=== PATIENT | female | born 1945 | race Caucasian/White ===

== ENCOUNTER 2018-09-28 10:38 | Observation (INO) | payer MEDICAID, MEDICARE ==
[2018-09-28] MEDS ORDERED: PANTOPRAZOLE SODIUM 40 MG in NORMAL SALINE 100 ML IV ONE (10:46)
[2018-09-28] MEDS ORDERED: NORMAL SALINE 1,000 ML IV ONE (10:46)
[2018-09-28 11:18] LABS: Hematocrit 35.8 % (37.0-47.0); Hemoglobin 11.4 gm/dL (12.5-16.0); Mean Cell Volume 80.3 fl (78-100); Mean Corpuscular Hemoglobin 25.6 pg (27-31); Mean Corpuscular Hgb Conc 31.8 g/dl (32-36); Mean Platelet Volume 10.6 fl (8-12.5); Neutrophil # 16.7 K/mm3 (1.3-6.0); Neutrophil % 83.5 % (42-75.0); Platelet Count 539 K/mm3 (150-450); Red Blood Count 4.46 M/mm3 (4.2-5.4); Red Cell Distribution Width 14.8 % (11.5-14.0)
[2018-09-28 11:25] LABS: Prothrombin Time (Patient) 11.1 Seconds (9.0-11.0)
[2018-09-28] MEDS ORDERED: PANTOPRAZOLE SODIUM 40 MG/100 ML PIGGYBACK IV ONE (11:30)
[2018-09-28 11:31] LABS: ALT 17 U/L (19-67); AST 21 U/L (0-48); Albumin * 3.3 gm/dl (3.4-5.0); Alkaline Phosphatase * 107 U/L (50-170); Anion Gap 10.3 mmol/L (6.8-13.8); Bilirubin, Total 0.4 mg/dL (0.0-1.1); Blood Urea Nitrogen 29 mg/dL (3-23); Ca. Corrected For Albumin 9.4 mg/dL (8.4-10.2); Calcium * 9.2 mg/dL (7.9-10.9); Carbon Dioxide 30.4 mmol/L (24-32.6); Chloride 100 mmol/L (97-106); Glucose * 134 mg/dL (70-110); Potassium 3.7 mmol/L (3.4-4.6); Sodium 137 mmol/L (132-142); Total Protein 8.5 gm/dL (6.2-8.2); Troponin I Less than 0.017 ng/mL (0.00-0.10)
[2018-09-28 11:32] LABS: INR 1.11 INR (0.90-1.10); Partial Thrombolplastin Time 29.4 Seconds (24-32)
--- NOTE | 2018-09-28 11:50 | ERNOTE ---
GI Bleeding/Rectal Pain ER Date of Service: 09/28/18 Presenting Symptoms: vomiting blood Time Seen by Provider: 09/28/18 10:39 Source: patient Exam Limitations: no limitations Immunizations: IMMUNIZATION HX Immunizations Up to Date Yes History of Influenza Vaccine Yes Hx Pneumococcal Vaccination Yes Allergies/Adverse Reactions: Allergies tramadol Allergy (Intermediate, Verified 09/28/18 10:43) Home Medications: HOME MEDICATIONS Albuterol Sulfate [Albuterol Sulfate 2.5 MG/0.5ML] 1 vial IH Q4H PRN 09/28/18 [Last Taken Unknown] Amlodipine Besylate 10 mg PO DAILY 09/28/18 [Last Taken Unknown] Anagrelide HCl 0.5 mg PO DAILY 09/28/18 [Last Taken Unknown] Aspirin 81 mg PO DAILY 09/28/18 [Last Taken Unknown] Benzonatate 100 mg PO TID PRN 09/28/18 [Last Taken Unknown] Enalapril Maleate [Vasotec] 20 mg PO DAILY 09/28/18 [Last Taken Unknown] Fluticasone Propionate [Flovent Hfa] 1 puff IH 09/28/18 [Last Taken Unknown] Furosemide [Lasix] 20 mg PO DAILY 09/28/18 [Last Taken Unknown] Metoclopramide HCl [Reglan] 5 mg PO QID 09/28/18 [Last Taken Unknown] Metoprolol Succinate [Toprol Xl] 50 mg PO DAILY 09/28/18 [Last Taken Unknown] Morphine Sulfate [Ms Contin] 30 mg PO BID 09/28/18 [Last Taken Unknown] Nicotine [Nicoderm] 14 mg TD DAILY 09/28/18 [Last Taken Unknown] Saccharomyces Boulardii [Probiotic] 250 mg PO BID 09/28/18 [Last Taken Unknown] Sennosides [Senna Laxative] 8.6 mg PO DAILY 09/28/18 [Last Taken Unknown] Simvastatin [Zocor] 10 mg PO HS 09/28/18 [Last Taken Unknown] Ticagrelor [Brilinta] 90 mg PO BID 09/28/18 [Last Taken Unknown] predniSONE [Prednisone] 1 tab PO TID 09/28/18 [Last Taken Unknown] Narrative: Patient presents to the ED via EMS for vomiting blood. She seems to be a poor historian. SHe is not sure what medications she takes. She was sent in from the clinic after vomiting blood twice. She was feeling fine yesterday. She had some bleeding from her mouth this morning. She also had a dark bowel movement by EMS report. She denies acute CP or SOB. Is home O2 dependent and thinks she has been having some nose bleeds. Apparently is on Brilinta. No coumadin or other blood thinners. She initially was not sure if her mouth was bleeding before she vomited blood. No syncope. Timing: constant Quality/Severity: Present: moderate Nausea/Vomiting: Present: blood Abdominal Pain: Present: none Rectal Bleeding: Absent: blood mixed with stool Associated Symptoms: Denies: light headedness Prior Treament: Denies: recently hospitalized Review of Systems - Review of Systems Constitutional: Absent: fever ENT: Present: See HPI Respiratory: Absent: cough Cardiology: Absent: chest pain Gastrointestinal/Abdominal: Absent: abdominal pain Genitourinary: Absent: dysuria Musculoskeletal: Present: no symptoms reported All Other Systems: All systems neg except as marked Medical History (Last Reviewed 09/28/18 @ 12:59 by Rogerio Ash MD) History of COPD History of home oxygen therapy Hx of carotid artery stenosis Hx of chronic heart failure Hx of hyperlipidemia Hx of primary hypertension Surgical History: Surgical History (Last Reviewed 09/28/18 @ 12:59 by Rogerio Ash MD) History of common carotid artery stent placement Hx of heart artery stent Hx of hysterectomy Family History: Family History (Last Reviewed 09/28/18 @ 12:59 by Rogerio Ash MD) Other No pertinent family history Social History: Preferred Language Haitian Do you have any confucianist or No cultural preference? Smoking Status Former smoker Alcohol Use none Drug Use none No Social History Section defined Physical Exam - Physical Exam General Appearance: Present: alert Head Exam: Present: normal inspection Eye Exam: Normal inspection: bilateral Ears, Nose, Throat: Present: other - bleeding from just behind upper fron teeth. Nothing that I can see as bleeding specifically. No active nose bleed noted. Neck: Present: other - trachea midline Respiratory: Present: no respiratory distress, no accessory muscle use, other - few faint wheezes Cardiovascular/Chest: Present: regular rate, rhythm Gastrointestinal/Abdominal: Present: normal bowel sounds, nontender, nondistended, soft Back Exam: Absent: CVA tenderness (R), CVA tenderness (L) Extremity Exam: Present: other - no gross deformity Neurological Exam: Present: alert, other - no acute unilateral focal motor or sensory deficits noted Skin Exam: Present: normal color, warm/dry ED Progress - Results and Orders Patient's Lab Results:: I have reviewed the patient's lab results. - Vital Signs Patient's Vital Signs:: I have reviewed the patient's vital signs. Vital Signs: Vital Signs 09/28/18 10:39 09/28/18 10:57 09/28/18 11:22 Temperature 36.3 C Pulse Rate 87 87 75 Respiratory Rate 16 19 Blood Pressure 216/106 H 200/89 H O2 Sat by Pulse Oximetry 95 98 - EKG EKG: NSR EKG read: Interp. by me EKG Comments: NSR rate 76, PVCs noted. Non-specific changes, no STEMI - X-Ray X-Ray #1 X-Ray: chest Interpretation: Interp. by me X-ray Comments: I reviewed official radiology report - Progress/Reassessment Chief Complaint: GI Bleed Progress Note-Subjective: 09/28/18 13:03 Bleeding in mouth stopped after afrin on cotton swab after failed attempts at pressure/surgicel/teabag. I am not sure if this bleeding in the mouth was caused by the vomiting or if the oral bleeding was the initiating event. Given her poor overall health and the amount of blood she needs to have her hemoglobin trended. I spoke with Dr Gonzalez who saw the patient in the ED and will admit the patient obs. Patient is agreeable. Departure Clinical Impression: Vomiting blood, Oral hemorrhage, Leukocytosis, Guaiac positive stools - Departure Disposition: Still a patient Condition: Fair
[2018-09-28] MEDS ORDERED: OXYMETAZOLINE HCL 150 SPRAY BTL ONE (12:29)
[2018-09-28] MEDS ORDERED: PHENYLEPHRINE HCL 150 SPRAY BTL NS ONE (12:31)
[2018-09-28 13:17] LABS: Urine Bilirubin Negative (NEGATIVE); Urine Blood Negative /ul (NEGATIVE); Urine Ketone Negative (NEGATIVE); Urine Protein 15 mg/dL (NEGATIVE); Urine Urobilinogen Normal (NORMAL)
[2018-09-28 13:24] LABS: Urine Appearance Slightly Cloudy (CLEAR); Urine Bacteria 2+; Urine Color Pale Yellow; Urine Nitrite Positive (NEGATIVE); Urine RBC TRACE /hpf (0-5)
[2018-09-28] MEDS ORDERED: ALBUTEROL SULFATE 2.5 MG/0.5 ML VIAL.NEB IH PRN (15:20)
[2018-09-28] MEDS ORDERED: BENZONATATE 100 MG CAPSULE PO PRN (15:20)
[2018-09-28] MEDS ORDERED: LEVOFLOXACIN IN DEXTROSE 5 % 500 MG/100 ML BAG IV SCH (15:30)
--- NOTE | 2018-09-28 16:00 | CONS ---
[facility] - General Date of Service: 09/28/18 Narrative: GI bleed Source: patient Exam Limitations: other - poor historian - History of Present Illness Initial Comments: Patient describes having dark loose stools which she attributes to taking a stool softener and her blood thinner. Also has a cut in her mouth, and believes that is why she was spitting up blood. Denies any nausea or vomiting. She denies any abdominal pain. Denies a history of peptic ulcer disease. She denies having an EGD in the past. She believes that she has had a colonoscopy in the past, and believes that was in the last few years. She currently denies any pain. Denies any nausea or vomiting currently. Timing/Duration: 24 hours Severity: mild Associated Symptoms: denies symptoms, weakness Allergies/Adverse Reactions: Allergies tramadol Allergy (Intermediate, Verified 09/28/18 10:43) Home Medications: Home Medications Medication Instructions Recorded Last Taken Albuterol Sulfate [Albuterol 1 vial IH Q4H PRN 09/28/18 Unknown Sulfate 2.5 MG/0.5ML] Amlodipine Besylate 10 mg PO DAILY 09/28/18 Unknown Anagrelide HCl 0.5 mg PO DAILY 09/28/18 Unknown Aspirin 81 mg PO DAILY 09/28/18 Unknown Benzonatate 100 mg PO TID PRN 09/28/18 Unknown Enalapril Maleate [Vasotec] 20 mg PO DAILY 09/28/18 Unknown Fluticasone Propionate [Flovent 1 puff IH DAILY 09/28/18 Unknown Hfa] Furosemide [Lasix] 20 mg PO DAILY 09/28/18 Unknown Metoclopramide HCl [Reglan] 5 mg PO QID 09/28/18 Unknown Metoprolol Succinate [Toprol Xl] 50 mg PO DAILY 09/28/18 Unknown Morphine Sulfate [Ms Contin] 30 mg PO BID 09/28/18 Unknown Nicotine [Nicoderm] 14 mg TD DAILY 09/28/18 Unknown Saccharomyces Boulardii [Probiotic] 250 mg PO BID 09/28/18 Unknown Sennosides [Senna Laxative] 8.6 mg PO DAILY 09/28/18 Unknown Simvastatin [Zocor] 10 mg PO HS 09/28/18 Unknown Ticagrelor [Brilinta] 90 mg PO BID 09/28/18 Unknown predniSONE [Prednisone] 1 tab PO TID 09/28/18 Unknown History of carotid artery stent placement History of hysterectomy Describes an aortobifemoral repair Multiple large abdominal incisions Medications - Medications Current Medications: Please see list, includes Brilinta and aspirin Review of Systems - Review of Systems Narrative: Unable to obtain an accurate review of systems due to poor historian Physical Examination - Exam Narrative: No acute distress Vital Signs: Vital Signs - Last Taken Temp 36.9 C 09/28/18 14:15 Pulse 70 09/28/18 14:42 Resp 12 09/28/18 14:15 BP 174/74 H 09/28/18 14:15 Pulse Ox 99 09/28/18 14:15 O2 Oxygen Delivery Method Nasal Cannula Constitutional: Present: Alert, Oriented x3, Cooperative, Well developed, No distress ENT Exam: Present: hearing grossly normal Neck: Present: supple Breasts: Present: Exam deferred Respiratory: Present: lungs clear, normal breath sounds Cardiovascular/Chest: Present: normal peripheral pulses, regular rate, rhythm, no JVD Abdomen: Present: Normal bowel sounds, soft, nontender /Rectal: Present: Exam deferred Extremity: Present: normal range of motion Skin Exam: Present: normal color 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 tested Appearance: Present: appropriate appearance Eye contact: Present: cooperative Thoughts: Present: other - Poor historian - Results and Findings: Lab/Microbiology results last 24 hrs: Abnormal/Pending Laboratory Last 24 HRS 09/28/18 09/28/18 09/28/18 13:02 11:21 11:00 WBC Hgb Hct MCH MCHC RDW Plt Count Immature Gran % (Auto) Immature Gran # (Auto) Neutrophils % Lymphocytes % Neutrophils # Lymphocytes # Monocytes # PT INR (Anticoag Therapy) BUN Est GFR (Non-Af Amer) BUN/Creatinine Ratio Random Glucose ALT B-Natriuretic Peptide 1152 H Total Protein Albumin Urine Protein 15 H Urine Nitrate Positive H Ur Leukocyte Esterase 75 H Urine WBC 5-10 H Urine Bacteria 2+ H Stool Occult Blood Positive H 09/28/18 09/28/18 09/28/18 11:00 11:00 11:00 WBC 20.0 H Hgb 11.4 L Hct 35.8 L MCH 25.6 L MCHC 31.8 L RDW 14.8 H Plt Count 539 H Immature Gran % (Auto) 0.60 H Immature Gran # (Auto) 0.11 H Neutrophils % 83.5 H Lymphocytes % 6.8 L Neutrophils # 16.7 H Lymphocytes # 1.35 L Monocytes # 1.2 H PT 11.1 H INR (Anticoag Therapy) 1.11 H BUN 29 H Est GFR (Non-Af Amer) 42 L BUN/Creatinine Ratio 22.0 H Random Glucose 134 H ALT 17 L B-Natriuretic Peptide Total Protein 8.5 H Albumin 3.3 L Urine Protein Urine Nitrate Ur Leukocyte Esterase Urine WBC Urine Bacteria Stool Occult Blood - Assessments/Findings (1) Guaiac positive stools Problem: Acute (2) Leukocytosis Problem: Acute (3) Oral hemorrhage Problem: Acute (4) Vomiting blood Problem: Acute Plan - Plan Plan: EGD planned for tomorrow. Risks and benefits of the procedure were discussed with the patient and she'll like to proceed. I also discussed the patient with Dr. Gonzalez. She can have clears tonight, nothing by mouth after midnight for the procedure. Continue to do serial hemoglobins.
[2018-09-28] MEDS: predniSONE 20 MG TABLET PO SCH (16:03)
[2018-09-28] MEDS: amLODIPine BESYLATE 10 MG TABLET PO SCH (16:03)
[2018-09-28] MEDS: SUCRALFATE 1 G TABLET PO SCH ×2 (16:03→20:30)
[2018-09-28] MEDS: ENALAPRIL MALEATE 20 MG TABLET PO SCH (16:03)
--- NOTE | 2018-09-28 16:15 | HP ---
Chief Complaint - Chief Complaint Date of Service: 09/28/18 Time of Service: 12:50 Chief Complaint: Upper GI bleed History of Present Illness: Gaviota Altman is a 72 yo. wh. fe. who presented to ER after vomiting an ~800cc of blood. She also had some black tarry stools. She also had some bleeding from the hard palate just behind the upper front teeth. That was successfully stopped by Dr. Alvarez. She has not had any more hematemesis since admission. Her BP was elevated in the ER and she had not taKEN HER MORNING MEDS which are mostly BP meds. She takes Brilinta daily and also takes an antiplatelet med and aspirin. She has a elevated WBC of 20K and maybe because she is on prednisone 60mg daily. She also has a UTI per UA. No c/o dysuria, frequency, urgency or gu bleeding. She will be observed and monitored through the night. She will have serial H&Hs q 6 hrs Xs 4. I will start her on sucralfate and pantoprazole. I have asked Dr. Masters to consult. I have started levaquin at 500mg /day due to renal insuficiency. She received one dose of Rocephin in the ER. I will hold all of her anticoagulants.Allow clear liquids. Medical History (Last Reviewed 09/28/18 @ 14:19 by Tonia Wilkins RN) History of COPD History of home oxygen therapy Hx of carotid artery stenosis Hx of chronic heart failure Hx of hyperlipidemia Hx of primary hypertension Surgical History: Surgical History (Last Updated 09/28/18 @ 14:17 by Tonia Wilkins RN) History of [id number] bypass History of common carotid artery stent placement Hx of heart artery stent Hx of hysterectomy Family History: Family History (Last Updated 09/28/18 @ 14:19 by Tonia Wilkins RN) Father Colon cancer Mother Myocardial infarction Other Parents Social History: Patient Lives/Resources Home Utilized Occupation retired/disability Preferred Language Sudanese Do you have any druze or No cultural preference? Smoking Status Former smoker Have you smoked in the past 12 No months Do you dip or chew tobacco No Alcohol Use none Drug Use none No Social History Section defined Review Of Systems (GEN) - Review of Systems Generalized/Overall Review: Present: Weakness, Fatigue EENTM: Present: No Symptoms Reported Respiratory: Present: Cough, Shortness of Breath, Wheezing. Absent: Stridor Cardiac: Present: No Symptoms Reported, Other - Hx. of CAD and stenting Abdominal: Present: Nausea, Vomiting, Hematemesis, Melena. Absent: Bright blood from rectum Genitourinary: Present: No Symptoms Reported Musculoskeletal: Present: No Symptoms Reported Neurological: Present: Tremors, Weakness Skin: Present: No Symptoms Reported Endocrine: Present: No Symptoms Reported Immunizations: IMMUNIZATION HX Immunizations Up to Date Yes History of Influenza Vaccine Yes Hx Pneumococcal Vaccination Yes Allergies/Adverse Reactions: Allergies Allergy/AdvReac Type Severity Reaction Status Date / Time tramadol Allergy Intermediate Verified 09/28/18 10:43 Home Medications: HOME MEDICATIONS Albuterol Sulfate [Albuterol Sulfate 2.5 MG/0.5ML] 1 vial IH Q4H PRN 09/28/18 [Last Taken Unknown] Amlodipine Besylate 10 mg PO DAILY 09/28/18 [Last Taken Unknown] Anagrelide HCl 0.5 mg PO DAILY 09/28/18 [Last Taken Unknown] Aspirin 81 mg PO DAILY 09/28/18 [Last Taken Unknown] Benzonatate 100 mg PO TID PRN 09/28/18 [Last Taken Unknown] Enalapril Maleate [Vasotec] 20 mg PO DAILY 09/28/18 [Last Taken Unknown] Fluticasone Propionate [Flovent Hfa] 1 puff IH DAILY 09/28/18 [Last Taken Unknown] Furosemide [Lasix] 20 mg PO DAILY 09/28/18 [Last Taken Unknown] Metoclopramide HCl [Reglan] 5 mg PO QID 09/28/18 [Last Taken Unknown] Metoprolol Succinate [Toprol Xl] 50 mg PO DAILY 09/28/18 [Last Taken Unknown] Morphine Sulfate [Ms Contin] 30 mg PO BID 09/28/18 [Last Taken Unknown] Nicotine [Nicoderm] 14 mg TD DAILY 09/28/18 [Last Taken Unknown] Saccharomyces Boulardii [Probiotic] 250 mg PO BID 09/28/18 [Last Taken Unknown] Sennosides [Senna Laxative] 8.6 mg PO DAILY 09/28/18 [Last Taken Unknown] Simvastatin [Zocor] 10 mg PO HS 09/28/18 [Last Taken Unknown] Ticagrelor [Brilinta] 90 mg PO BID 09/28/18 [Last Taken Unknown] predniSONE [Prednisone] 1 tab PO TID 09/28/18 [Last Taken Unknown] Exam - Exam Vital Signs: Vital Signs - Last Taken Temp 36.9 C 09/28/18 14:15 Pulse 70 09/28/18 14:42 Resp 12 09/28/18 14:15 BP 174/74 H 09/28/18 14:15 Pulse Ox 99 09/28/18 14:15 Constitutional: Present: Alert, Oriented x3, Cooperative, Well developed, Well nourished, Moderate distress, Elderly, Looks Older than stated age ENT Exam: Present: hearing grossly normal, other - dark blood in her mouth Eye Exam: bilateral eye: normal inspection, PERRL, EOMI Neck: Present: non-tender, full range of motion, supple, normal inspection, trachea midline Back Exam: Present: normal inspection, no CVA tenderness, no vertebral tenderness Breasts: Present: Exam deferred Respiratory: Present: chest non-tender, decreased breath sounds, rhonchi, wheezing Cardiovascular/Chest: Present: normal peripheral pulses, regular rate, rhythm, no chest tenderness, no edema, no gallop, no JVD, no murmur, no rub Peripheral Pulses: carotid (R): 2+, carotid (L): 2+ Abdomen: Present: Normal bowel sounds, soft, tender, guarding - in the midepigastrium /Rectal: Present: Exam deferred Extremity: Present: normal range of motion, non-tender, normal inspection, no pedal edema, no calf tenderness, normal capillary refill Skin Exam: Present: normal color, warm/dry, no cyanosis Lymphatic: Present: no adenopathy 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 Absent: no apparent hallucination, auditory hallucinations, delusions Diagnostic Studies: Abnormal Lab Results 09/28/18 09/28/18 09/28/18 Range/Units 11:00 11:00 11:00 WBC 20.0 H (4.0-10.5) K/mm3 Hgb 11.4 L (12.5-16.0) gm/dL Hct 35.8 L (37.0-47.0) % MCH 25.6 L (27-31) pg MCHC 31.8 L (32-36) g/dl RDW 14.8 H (11.5-14.0) % Plt Count 539 H (150-450) K/mm3 Immature Gran % (Auto) 0.60 H (0.001-0.429) % Immature Gran # (Auto) 0.11 H (0.000-0.0310) K/mm3 Neutrophils % 83.5 H (42-75.0) % Lymphocytes % 6.8 L (20-51) % Neutrophils # 16.7 H (1.3-6.0) K/mm3 Lymphocytes # 1.35 L (1.5-3.5) k/mm3 Monocytes # 1.2 H (0.0-1.0) k/mm3 PT 11.1 H (9.0-11.0) Seconds INR (Anticoag Therapy) 1.11 H (0.90-1.10) INR BUN 29 H (3-23) mg/dL Est GFR (Non-Af Amer) 42 L (60-130) mL/min BUN/Creatinine Ratio 22.0 H (9.0-21.6) Random Glucose 134 H (70-110) mg/dL ALT 17 L (19-67) U/L B-Natriuretic Peptide (5-325) pg/mL Total Protein 8.5 H (6.2-8.2) gm/dL Albumin 3.3 L (3.4-5.0) gm/dl Urine Protein (NEGATIVE) mg/dL Urine Nitrate (NEGATIVE) Ur Leukocyte Esterase (NEGATIVE) /ul Urine WBC (0-5) /hpf Urine Bacteria (NONE) Stool Occult Blood 09/28/18 09/28/18 09/28/18 Range/Units 11:00 11:21 13:02 WBC (4.0-10.5) K/mm3 Hgb (12.5-16.0) gm/dL Hct (37.0-47.0) % MCH (27-31) pg MCHC (32-36) g/dl RDW (11.5-14.0) % Plt Count (150-450) K/mm3 Immature Gran % (Auto) (0.001-0.429) % Immature Gran # (Auto) (0.000-0.0310) K/mm3 Neutrophils % (42-75.0) % Lymphocytes % (20-51) % Neutrophils # (1.3-6.0) K/mm3 Lymphocytes # (1.5-3.5) k/mm3 Monocytes # (0.0-1.0) k/mm3 PT (9.0-11.0) Seconds INR (Anticoag Therapy) (0.90-1.10) INR BUN (3-23) mg/dL Est GFR (Non-Af Amer) (60-130) mL/min BUN/Creatinine Ratio (9.0-21.6) Random Glucose (70-110) mg/dL ALT (19-67) U/L B-Natriuretic Peptide 1152 H (5-325) pg/mL Total Protein (6.2-8.2) gm/dL Albumin (3.4-5.0) gm/dl Urine Protein 15 H (NEGATIVE) mg/dL Urine Nitrate Positive H (NEGATIVE) Ur Leukocyte Esterase 75 H (NEGATIVE) /ul Urine WBC 5-10 H (0-5) /hpf Urine Bacteria 2+ H (NONE) Stool Occult Blood Positive H Laboratory Results WBC 20.0 K/mm3 (4.0-10.5) H 09/28/18 11:00 RBC 4.46 M/mm3 (4.2-5.4) 09/28/18 11:00 Hgb 11.4 gm/dL (12.5-16.0) L 09/28/18 11:00 Hct 35.8 % (37.0-47.0) L 09/28/18 11:00 MCV 80.3 fl (78-100) 09/28/18 11:00 MCH 25.6 pg (27-31) L 09/28/18 11:00 MCHC 31.8 g/dl (32-36) L 09/28/18 11:00 RDW 14.8 % (11.5-14.0) H 09/28/18 11:00 Plt Count 539 K/mm3 (150-450) H 09/28/18 11:00 MPV 10.6 fl (8-12.5) 09/28/18 11:00 Immature Gran % (Auto) 0.60 % (0.001-0.429) H 09/28/18 11:00 Immature Gran # (Auto) 0.11 K/mm3 (0.000-0.0310) H 09/28/18 11:00 Neutrophils % 83.5 % (42-75.0) H 09/28/18 11:00 Lymphocytes % 6.8 % (20-51) L 09/28/18 11:00 Monocytes % 6.2 % (0.0-9) 09/28/18 11:00 Eosinophils % 2.5 % (0.0-3.0) 09/28/18 11:00 Basophils % 0.4 % (0.0-1.0) 09/28/18 11:00 Nucleated RBC % 0.0 k/mm3 (0-1) 09/28/18 11:00 Neutrophils # 16.7 K/mm3 (1.3-6.0) H 09/28/18 11:00 Lymphocytes # 1.35 k/mm3 (1.5-3.5) L 09/28/18 11:00 Monocytes # 1.2 k/mm3 (0.0-1.0) H 09/28/18 11:00 Eosinophils # 0.5 k/mm3 (0.0-0.7) 09/28/18 11:00 Absolute Basophils 0.1 k/mm3 (0.0-0.1) 09/28/18 11:00 PT 11.1 Seconds (9.0-11.0) H 09/28/18 11:00 INR (Anticoag Therapy) 1.11 INR (0.90-1.10) H 09/28/18 11:00 PTT (Erik) 29.4 Seconds (24-32) 09/28/18 11:00 Sodium 137 mmol/L (132-142) 09/28/18 11:00 Plasma Sodium 138 mmol/L (130-142) 09/28/18 11:00 Potassium 3.7 mmol/L (3.4-4.6) 09/28/18 11:00 Chloride 100 mmol/L (97-106) 09/28/18 11:00 Carbon Dioxide 30.4 mmol/L (24-32.6) 09/28/18 11:00 Anion Gap 10.3 mmol/L (6.8-13.8) 09/28/18 11:00 BUN 29 mg/dL (3-23) H 09/28/18 11:00 Creatinine 1.32 mg/dL (0.4-1.4) 09/28/18 11:00 Est GFR (Non-Af Amer) 42 mL/min (60-130) L 09/28/18 11:00 BUN/Creatinine Ratio 22.0 (9.0-21.6) H 09/28/18 11:00 Random Glucose 134 mg/dL (70-110) H 09/28/18 11:00 Lactic Acid, Venous 0.6 mmol/L (0.4-2.0) 09/28/18 12:10 Calcium 9.2 mg/dL (7.9-10.9) 09/28/18 11:00 Calcium Adj for Albumin 9.4 mg/dL (8.4-10.2) 09/28/18 11:00 Total Bilirubin 0.4 mg/dL (0.0-1.1) 09/28/18 11:00 AST 21 U/L (0-48) 09/28/18 11:00 ALT 17 U/L (19-67) L 09/28/18 11:00 Alkaline Phosphatase 107 U/L (50-170) 09/28/18 11:00 Troponin I Less than 0.017 ng/mL (0.00-0.10) 09/28/18 11:00 B-Natriuretic Peptide 1152 pg/mL (5-325) H 09/28/18 11:00 Total Protein 8.5 gm/dL (6.2-8.2) H 09/28/18 11:00 Albumin 3.3 gm/dl (3.4-5.0) L 09/28/18 11:00 Urine Color Pale yellow 09/28/18 13:02 Urine Appearance Slightly cloudy (CLEAR) 09/28/18 13:02 Urine pH 6.0 pH (5.0-7.0) 09/28/18 13:02 Ur Specific Armstrong 1.020 SP.GR. (1.005-1.010) 09/28/18 13:02 Urine Protein 15 mg/dL (NEGATIVE) H 09/28/18 13:02 Urine Glucose (UA) Negative mg/dL (NEGATIVE) 09/28/18 13:02 Urine Ketones Negative mg/dL (NEGATIVE) 09/28/18 13:02 Urine Blood Negative /ul (NEGATIVE) 09/28/18 13:02 Urine Nitrate Positive (NEGATIVE) H 09/28/18 13:02 Urine Bilirubin Negative mg/dl (NEGATIVE) 09/28/18 13:02 Prot Sulfosalicylic Acd 1+ mg/dL (0) 09/28/18 13:02 Urine Urobilinogen Normal EU/dl (NORMAL) 09/28/18 13:02 Ur Leukocyte Esterase 75 /ul (NEGATIVE) H 09/28/18 13:02 Urine RBC Trace /hpf (0-5) 09/28/18 13:02 Urine WBC 5-10 /hpf (0-5) H 09/28/18 13:02 Ur Epithelial Cells 0-5 /hpf (0-5) 09/28/18 13:02 Urine Bacteria 2+ (NONE) H 09/28/18 13:02 Urine Culture Comments Culture to follow 09/28/18 13:02 Stool Occult Blood Positive H 09/28/18 11:21 Blood Type B Positive 09/28/18 11:00 Antibody Screen Positive 09/28/18 11:00 Assessment/Plan - Narrative Narrative: 1. Serial H&Hs. 2. Treat UTI 3. Begin Pantoprazole and sulcralfate 4. Surgical consult with Dr. Masters. 5 begin clear liquids and start BP meds today.
--- NOTE | 2018-09-28 17:36 | ANES ---
Anesthesia Pre Procedure Eval Vitals/Labs: Last Vital Signs Temp 36.9 C 09/28/18 14:15 Pulse 70 09/28/18 16:03 Resp 12 09/28/18 14:15 BP 174/74 H 09/28/18 16:03 Pulse Ox 99 09/28/18 14:15 HOME MEDICATIONS Albuterol Sulfate [Albuterol Sulfate 2.5 MG/0.5ML] 1 vial IH Q4H PRN 09/28/18 [Last Taken Unknown] Amlodipine Besylate 10 mg PO DAILY 09/28/18 [Last Taken Unknown] Anagrelide HCl 0.5 mg PO DAILY 09/28/18 [Last Taken Unknown] Aspirin 81 mg PO DAILY 09/28/18 [Last Taken Unknown] Benzonatate 100 mg PO TID PRN 09/28/18 [Last Taken Unknown] Enalapril Maleate [Vasotec] 20 mg PO DAILY 09/28/18 [Last Taken Unknown] Fluticasone Propionate [Flovent Hfa] 1 puff IH DAILY 09/28/18 [Last Taken U nknown] Furosemide [Lasix] 20 mg PO DAILY 09/28/18 [Last Taken Unknown] Metoclopramide HCl [Reglan] 5 mg PO QID 09/28/18 [Last Taken Unknown] Metoprolol Succinate [Toprol Xl] 50 mg PO DAILY 09/28/18 [Last Taken Unknown] Morphine Sulfate [Ms Contin] 30 mg PO BID 09/28/18 [Last Taken Unknown] Nicotine [Nicoderm] 14 mg TD DAILY 09/28/18 [Last Taken Unknown] Saccharomyces Boulardii [Probiotic] 250 mg PO BID 09/28/18 [Last Taken Unknown] Sennosides [Senna Laxative] 8.6 mg PO DAILY 09/28/18 [Last Taken Unknown] Simvastatin [Zocor] 10 mg PO HS 09/28/18 [Last Taken Unknown] Ticagrelor [Brilinta] 90 mg PO BID 09/28/18 [Last Taken Unknown] predniSONE [Prednisone] 1 tab PO TID 09/28/18 [Last Taken Unknown] Allergies/Adverse Reactions: Allergies Allergy/AdvReac Type Severity Reaction Status Date / Time tramadol Allergy Intermediate Verified 09/28/18 10:43 - Planned Procedure Planned Procedure: GI BLEED,LEUKOCYTOSIS Medication List Reviewed:: Yes Allergies Verified: Yes Medical History (Last Reviewed 09/28/18 @ 17:33 by Nino Coronado CRNA) History of COPD History of home oxygen therapy Hx of carotid artery stenosis Hx of chronic heart failure Hx of hyperlipidemia Hx of primary hypertension Surgical History (Last Reviewed 09/28/18 @ 17:33 by Nino Coronado CRNA) History of [id number] bypass History of common carotid artery stent placement Hx of heart artery stent Hx of hysterectomy Family History (Last Reviewed 09/28/18 @ 17:33 by Nino Coronado CRNA) Father Colon cancer Mother Myocardial infarction Other Parents - Family Anesthesia History Family History:: no untoward family reactions to anesthesia, no familial bleeding tendencies, no family history of clotting disorders, no family history of premature - Airway/Neck/Teeth Within Normal Limits:: Yes Teeth Condition: Missing Teeth Mallampatti Score: 2 Thyromental (T-M) distance: > 6 cm Mandibulo Hyoid distance: > 3 cm - Respiratory Respiratory: chest non-tender, decreased breath sounds Smoking Status: Former smoker - quit over one year Sleep Apnea currently treated: No Sleep Apnea by current assessment: No - Cardiovascular Patient History - Cardiac/Respiratory: Arrhythmias, Coronary Heart Disease, CHF, COPD Tolerates Activity: Poor Heart Sounds: S1 & S2, Irregular - Anesthesia Assessment and Plan ASA Class: PS, III Anesthesia Type Plan: MAC
[2018-09-28] MEDS: BUDESONIDE 0.5 MG/2 ML VIAL.NEB IH SCH (18:10)
[2018-09-28 18:23] LABS: Hematocrit 33.3 % (37.0-47.0); Hemoglobin 10.7 gm/dL (12.5-16.0)
[2018-09-28 18:47] LABS: Prothrombin Time (Patient) 11.3 Seconds (9.0-11.0)
[2018-09-28 18:50] LABS: INR 1.13 INR (0.90-1.10)
[2018-09-28] MEDS: MORPHINE SULFATE 30 MG TABLET.SA PO SCH (20:29)
[2018-09-28] MEDS: SACCHAROMYCES BOULARDII 250 MG CAPSULE PO SCH (20:30)
[2018-09-28] MEDS ORDERED: PANTOPRAZOLE SODIUM 40 MG in NORMAL SALINE 100 ML IV SCH (21:00)
[2018-09-28] MEDS: METOPROLOL SUCCINATE 50 MG TABLET.SA PO SCH (23:34)
[2018-09-29 05:43] LABS: Hematocrit 31.4 % (37.0-47.0); Mean Cell Volume 79.7 fl (78-100); Mean Corpuscular Hemoglobin 25.4 pg (27-31); Mean Corpuscular Hgb Conc 31.8 g/dl (32-36); Mean Platelet Volume 10.4 fl (8-12.5); Neutrophil # 7.4 K/mm3 (1.3-6.0); Neutrophil % 88.3 % (42-75.0); Platelet Count 417 K/mm3 (150-450); Red Blood Count 3.94 M/mm3 (4.2-5.4); Red Cell Distribution Width 14.9 % (11.5-14.0); White Blood Count 8.4 K/mm3 (4.0-10.5)
[2018-09-29 05:56] LABS: Albumin * 2.8 gm/dl (3.4-5.0); BUN/Creatinine Ratio 18.1 (9.0-21.6); Bilirubin, Total 0.3 mg/dL (0.0-1.1); Ca. Corrected For Albumin 9.3 mg/dL (8.4-10.2); Calcium * 8.7 mg/dL (7.9-10.9); Carbon Dioxide 27.3 mmol/L (24-32.6); Potassium 4.3 mmol/L (3.4-4.6); Total Protein 7.4 gm/dL (6.2-8.2)
[2018-09-29] MEDS ORDERED: RINGER'S SOLUTION,LACTATED 1,000 ML IV PRN ×2 (06:00→08:47)
--- NOTE | 2018-09-29 06:09 | PN ---
Subjective - Date and Time Seen Date: 09/29/18 Time: 08:45 Subjective Narrative: denies emesis, denies pain, denies further dark stools Objective Objective Narrative: NAD RRR CTAB abd soft, non tender - Review of Systems Generalized/Overall Review: Reports: No Symptoms Reported EENTM: Reports: No Symptoms Reported Respiratory: Reports: No Symptoms Reported Cardiac: Reports: No Symptoms Reported Abdominal: Reports: No Symptoms Reported Genitourinary Symptoms: Reports: No Symptoms Reported Musculoskeletal Complaints: Reports: No Symptoms Reported Neurological: Reports: No Symptoms Reported Skin: Reports: No Symptoms Reported Endocrine: Reports: No Symptoms Reported - Vitals Vitals: Last Vital Signs Temp 37.0 C 09/29/18 04:00 Pulse 65 09/29/18 04:00 Resp 20 09/29/18 04:00 BP 149/49 09/29/18 04:00 Pulse Ox 96 09/29/18 04:00 - Abnormal Lab Findings Abnormal Lab Findings: Abnormal Lab Results 09/28/18 09/28/18 09/28/18 Range/Units 11:00 11:00 11:00 WBC 20.0 H (4.0-10.5) K/mm3 RBC (4.2-5.4) M/mm3 Hgb 11.4 L (12.5-16.0) gm/dL Hct 35.8 L (37.0-47.0) % MCH 25.6 L (27-31) pg MCHC 31.8 L (32-36) g/dl RDW 14.8 H (11.5-14.0) % Plt Count 539 H (150-450) K/mm3 Immature Gran % (Auto) 0.60 H (0.001-0.429) % Immature Gran # (Auto) 0.11 H (0.000-0.0310) K/mm3 Neutrophils % 83.5 H (42-75.0) % Lymphocytes % 6.8 L (20-51) % Neutrophils # 16.7 H (1.3-6.0) K/mm3 Lymphocytes # 1.35 L (1.5-3.5) k/mm3 Monocytes # 1.2 H (0.0-1.0) k/mm3 PT 11.1 H (9.0-11.0) Seconds INR (Anticoag Therapy) 1.11 H (0.90-1.10) INR BUN 29 H (3-23) mg/dL Est GFR (Non-Af Amer) 42 L (60-130) mL/min BUN/Creatinine Ratio 22.0 H (9.0-21.6) Random Glucose 134 H (70-110) mg/dL ALT 17 L (19-67) U/L B-Natriuretic Peptide (5-325) pg/mL Total Protein 8.5 H (6.2-8.2) gm/dL Albumin 3.3 L (3.4-5.0) gm/dl Urine Protein (NEGATIVE) mg/dL Urine Nitrate (NEGATIVE) Ur Leukocyte Esterase (NEGATIVE) /ul Urine WBC (0-5) /hpf Urine Bacteria (NONE) Stool Occult Blood 09/28/18 09/28/18 09/28/18 Range/Units 11:00 11:21 13:02 WBC (4.0-10.5) K/mm3 RBC (4.2-5.4) M/mm3 Hgb (12.5-16.0) gm/dL Hct (37.0-47.0) % MCH (27-31) pg MCHC (32-36) g/dl RDW (11.5-14.0) % Plt Count (150-450) K/mm3 Immature Gran % (Auto) (0.001-0.429) % Immature Gran # (Auto) (0.000-0.0310) K/mm3 Neutrophils % (42-75.0) % Lymphocytes % (20-51) % Neutrophils # (1.3-6.0) K/mm3 Lymphocytes # (1.5-3.5) k/mm3 Monocytes # (0.0-1.0) k/mm3 PT (9.0-11.0) Seconds INR (Anticoag Therapy) (0.90-1.10) INR BUN (3-23) mg/dL Est GFR (Non-Af Amer) (60-130) mL/min BUN/Creatinine Ratio (9.0-21.6) Random Glucose (70-110) mg/dL ALT (19-67) U/L B-Natriuretic Peptide 1152 H (5-325) pg/mL Total Protein (6.2-8.2) gm/dL Albumin (3.4-5.0) gm/dl Urine Protein 15 H (NEGATIVE) mg/dL Urine Nitrate Positive H (NEGATIVE) Ur Leukocyte Esterase 75 H (NEGATIVE) /ul Urine WBC 5-10 H (0-5) /hpf Urine Bacteria 2+ H (NONE) Stool Occult Blood Positive H 09/28/18 09/28/18 09/29/18 Range/Units 18:16 18:16 00:10 WBC (4.0-10.5) K/mm3 RBC (4.2-5.4) M/mm3 Hgb 10.7 L 10.6 L (12.5-16.0) gm/dL Hct 33.3 L (37.0-47.0) % MCH (27-31) pg MCHC (32-36) g/dl RDW (11.5-14.0) % Plt Count (150-450) K/mm3 Immature Gran % (Auto) (0.001-0.429) % Immature Gran # (Auto) (0.000-0.0310) K/mm3 Neutrophils % (42-75.0) % Lymphocytes % (20-51) % Neutrophils # (1.3-6.0) K/mm3 Lymphocytes # (1.5-3.5) k/mm3 Monocytes # (0.0-1.0) k/mm3 PT 11.3 H (9.0-11.0) Seconds INR (Anticoag Therapy) 1.13 H (0.90-1.10) INR BUN (3-23) mg/dL Est GFR (Non-Af Amer) (60-130) mL/min BUN/Creatinine Ratio (9.0-21.6) Random Glucose (70-110) mg/dL ALT (19-67) U/L B-Natriuretic Peptide (5-325) pg/mL Total Protein (6.2-8.2) gm/dL Albumin (3.4-5.0) gm/dl Urine Protein (NEGATIVE) mg/dL Urine Nitrate (NEGATIVE) Ur Leukocyte Esterase (NEGATIVE) /ul Urine WBC (0-5) /hpf Urine Bacteria (NONE) Stool Occult Blood 09/29/18 09/29/18 Range/Units 05:37 05:37 WBC (4.0-10.5) K/mm3 RBC 3.94 L (4.2-5.4) M/mm3 Hgb 10.0 L (12.5-16.0) gm/dL Hct 31.4 L (37.0-47.0) % MCH 25.4 L (27-31) pg MCHC 31.8 L (32-36) g/dl RDW 14.9 H (11.5-14.0) % Plt Count (150-450) K/mm3 Immature Gran % (Auto) (0.001-0.429) % Immature Gran # (Auto) (0.000-0.0310) K/mm3 Neutrophils % 88.3 H (42-75.0) % Lymphocytes % 8.6 L (20-51) % Neutrophils # 7.4 H (1.3-6.0) K/mm3 Lymphocytes # 0.72 L (1.5-3.5) k/mm3 Monocytes # (0.0-1.0) k/mm3 PT (9.0-11.0) Seconds INR (Anticoag Therapy) (0.90-1.10) INR BUN (3-23) mg/dL Est GFR (Non-Af Amer) 49 L (60-130) mL/min BUN/Creatinine Ratio (9.0-21.6) Random Glucose (70-110) mg/dL ALT 17 L (19-67) U/L B-Natriuretic Peptide (5-325) pg/mL Total Protein (6.2-8.2) gm/dL Albumin 2.8 L (3.4-5.0) gm/dl Urine Protein (NEGATIVE) mg/dL Urine Nitrate (NEGATIVE) Ur Leukocyte Esterase (NEGATIVE) /ul Urine WBC (0-5) /hpf Urine Bacteria (NONE) Stool Occult Blood - Exam Constitutional: Present: Alert ENT Exam: Present: normal ENT inspection Neck: Present: non-tender Breasts: Present: Exam deferred Respiratory: Present: lungs clear, normal breath sounds, no respiratory distress Cardiovascular/Chest: Present: normal peripheral pulses, regular rate, rhythm Abdomen: Present: Normal bowel sounds, soft, nontender /Rectal: Present: Exam deferred Extremity: Present: normal range of motion Skin Exam: Present: normal color 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 VSS. egd normal, ok to work on dc planning from gen surg standpoint. gen surg will sign off, call if questions advance diet
[2018-09-29] MEDS: BUDESONIDE 0.5 MG/2 ML VIAL.NEB IH SCH (06:11)
--- NOTE | 2018-09-29 08:42 | OR ---
Operative Report - Dictated Report Narrative: Date of Service:09/29/18 Procedure: EGD with biopsy Pre-procedure diagnosis: GI bleed Post-procedure diagnosis: normal EGD Surgeon: Dr. Brook Masters Anesthesia: MAC Indication for procedure: Gaviota is a very pleasant 72-year-old female who had hematemesis, and is on Brilinta Description of procedure: After appropriate informed consent was obtained, patient was taken to the endoscopy suite placed in the left lateral decubitus position. Monitors were applied, appropriate sedation was achieved. A lubricated gastroscope was inserted and advanced into the second portion of the duodenum. The scope was slowly withdrawn, the duodenum appeared normal. The scope was withdrawn to the antrum. A cold antral biopsy was taken. A cold biopsy for Carline was also taken. The scope was retroflexed, the stomach appeared normal. The body of the stomach also appeared normal. Scope was slowly withdrawn to the GE junction, the Z line appeared normal. The excess air was suctioned and the scope was slowly removed. Complications: none Specimens to pathology: antral biopsy Estimated blood loss: minimal Disposition: DC planning from surgical perspective
[2018-09-29] MEDS ORDERED: SENNOSIDES 8.6 MG TABLET PO SCH (09:00)
[2018-09-29] MEDS ORDERED: NICOTINE 14 MG PATC TD SCH (09:00)
[2018-09-29] MEDS ORDERED: PANTOPRAZOLE SODIUM 40 MG in NORMAL SALINE 100 ML IV SCH (09:00)
--- NOTE | 2018-09-29 09:08 | ANES ---
Post Anesthesia Discharge - Transfer of Care Transfer of Care handoff given to nurse: Yes - Discharge to ASU Discharge to ASU-no complications/pt stable: Yes - Alert in room.
--- NOTE | 2018-09-29 09:31 | ANES ---
Post Anesthesia Assessment - Vital Signs Vitals: Last Vital Signs Temp 36.4 C 09/29/18 09:14 Pulse 70 09/29/18 09:14 Resp 16 09/29/18 08:59 BP 163/69 H 09/29/18 09:14 Pulse Ox 100 09/29/18 09:14 Airway Patency: Normal - Mental Status Level Of Consciousness: Awake, Alert - Pain Level Pain Score: 0 - N/V Assessment Nausea/Vomiting Presence: None Dehydration:: No
[2018-09-29] MEDS: MORPHINE SULFATE 30 MG TABLET.SA PO SCH (10:06)
[2018-09-29] MEDS: amLODIPine BESYLATE 10 MG TABLET PO SCH (10:07)
[2018-09-29] MEDS: SACCHAROMYCES BOULARDII 250 MG CAPSULE PO SCH (10:08)
[2018-09-29] MEDS: predniSONE 20 MG TABLET PO SCH ×2 (10:08→12:12)
[2018-09-29] MEDS: SUCRALFATE 1 G TABLET PO SCH ×2 (10:09→12:12)
[2018-09-29] MEDS: ENALAPRIL MALEATE 20 MG TABLET PO SCH (10:09)
[2018-09-29] MEDS: METOPROLOL SUCCINATE 50 MG TABLET.SA PO SCH (10:14)
--- NOTE | 2018-09-29 10:32 | DS ---
(1) Vomiting blood Problem: Resolved Qualifiers: Nausea presence: with nausea Qualified Code(s): K92.0 - Hematemesis (2) Oral hemorrhage Problem: Resolved (3) Steroid-dependent COPD Problem: Chronic (4) FH: O2 dependent lung disease Problem: Chronic (5) Leukocytosis Problem: Acute Qualifiers: Leukocytosis type: bandemia Qualified Code(s): D72.825 - Bandemia (6) Guaiac positive stools Problem: Acute (7) Coronary artery disease Problem: Chronic (8) Thrombocytosis Problem: Chronic (9) Urinary tract infection Problem: Acute Qualifiers: Urinary tract infection type: acute cystitis Hematuria presence: without hematuria Qualified Code(s): N30.00 - Acute cystitis without hematuria Description of Stay: Gaviota Altman is a 72-year-old female who was admitted through ER for upper GI bleeding. Reportedly she had vomited about 800 mL of blood. She also had bleeding of the hard palate just behind the upper front teeth which was difficult to get stop bleeding but with multiple efforts Dr. Jain was able to get it stopped. She has been medically stable except for hypertension since admission. Her initial hemoglobin was 11.8 g. Which dropped to 10 mg and and then is back to 10.6 g this morning. There've been no evidence of further bleeding. Dr. Masters graciously consulted and performed an EGD this morning. There were no ulcerations or other findings suggestive of bleeding. Mrs. Altman is a steroid-dependent advanced COPD patient who requires chronic oxygen at 3 L nasal cannula continuously. She is taking prednisone 60 mg per day presumably for her lungs. In spite of the ulcerogenic risks of this large dose of prednisone no ulcers are found on EGD. Biopsies were taken for H. pylori. Postoperatively she has been stable. She still little sleepy and doesn't have a lot of appetite yet. I changed her IV meds to oral and we have given her her morning blood pressure medications to get her pressures better controlled. She was also discovered to have a urinary tract infection for which she has been treated with 2 doses of IV Levaquin. She is stable and satisfactory condition and may be discharged to home. She will follow-up with her own primary care doctor. A [id number] was completed today, 09/29/2018 for purposes of home health placement which is needed for nursing to do medication monitoring, education, and physical therapy for limb strengthening, gait training, ambulation, and safety awareness in her home. Procedures Performed: see notes below Results and Findings: Pending Mircobiology Results 09/28/18 13:02 Urine,Catheterized Urine Culture - Preliminary Gram Negative Bacilli Lab Pending Results 09/28/18 11:00: WBC 20.0 H, RBC 4.46, Hgb 11.4 L, Hct 35.8 L, MCV 80.3, MCH 25.6 L, MCHC 31.8 L, RDW 14.8 H, Plt Count 539 H, MPV 10.6, Immature Gran % (Auto) 0.60 H, Immature Gran # (Auto) 0.11 H, Neutrophils % 83.5 H, Lymphocytes % 6.8 L, Monocytes % 6.2, Eosinophils % 2.5, Basophils % 0.4, Nucleated RBC % 0.0, Neutrophils # 16.7 H, Lymphocytes # 1.35 L, Monocytes # 1.2 H, Eosinophils # 0.5, Absolute Basophils 0.1 09/28/18 11:00: Sodium 137, Plasma Sodium 138, Potassium 3.7, Chloride 100, Carbon Dioxide 30.4, Anion Gap 10.3, BUN 29 H, Creatinine 1.32, Est GFR (Non-Af Amer) 42 L, BUN/Creatinine Ratio 22.0 H, Random Glucose 134 H, Calcium 9.2, Calcium Adj for Albumin 9.4, Total Bilirubin 0.4, AST 21, ALT 17 L, Alkaline Phosphatase 107, Troponin I Less than 0.017, Total Protein 8.5 H, Albumin 3.3 L 09/28/18 11:00: Blood Type B Positive, Antibody Screen Positive, Antibody Identification Anti-E 09/28/18 11:00: PT 11.1 H, INR (Anticoag Therapy) 1.11 H, PTT (Erik) 29.4 09/28/18 11:00: B-Natriuretic Peptide 1152 H 09/28/18 11:21: Stool Occult Blood Positive H 09/28/18 12:10: Lactic Acid, Venous 0.6 09/28/18 13:02: Urine Color Pale yellow, Urine Appearance Slightly cloudy, Urine pH 6.0, Ur Specific [place] 1.020, Urine Protein 15 H, Urine Glucose (UA) Negative, Urine Ketones Negative, Urine Blood Negative, Urine Nitrate Positive H, Urine Bilirubin Negative, Prot Sulfosalicylic Acd 1+, Urine Urobilinogen Normal, Ur Leukocyte Esterase 75 H, Urine RBC Trace, Urine WBC 5-10 H, Ur Epithelial Cells 0-5, Urine Bacteria 2+ H, Urine Culture Comments Culture to follow 09/28/18 18:16: Hgb 10.7 L, Hct 33.3 L 09/28/18 18:16: PT 11.3 H, INR (Anticoag Therapy) 1.13 H, PTT (Mck[place]ley) 31.0 09/29/18 00:10: Hgb 10.6 L 09/29/18 05:37: WBC 8.4 D, RBC 3.94 L, Hgb 10.0 L, Hct 31.4 L, MCV 79.7, MCH 25.4 L, MCHC 31.8 L, RDW 14.9 H, Plt Count 417, MPV 10.4, Immature Gran % (Auto) 0.40, Immature Gran # (Auto) 0.03, Neutrophils % 88.3 H, Lymphocytes % 8.6 L, Monocytes % 2.5, Eosinophils % 0.0, Basophils % 0.2, Nucleated RBC % 0.0, Neutrophils # 7.4 H, Lymphocytes # 0.72 L, Monocytes # 0.2, Eosinophils # 0.0, Absolute Basophils 0.0 09/29/18 05:37: Sodium 138, Plasma Sodium 138, Potassium 4.3, Chloride 103, Carbon Dioxide 27.3, Anion Gap 12.0, BUN 21, Creatinine 1.16, Est GFR (Non-Af Amer) 49 L, BUN/Creatinine Ratio 18.1, Random Glucose 108, Calcium 8.7, Calcium Adj for Albumin 9.3, Total Bilirubin 0.3, AST 21, ALT 17 L, Alkaline Phosphatase 98, Total Protein 7.4, Albumin 2.8 L 09/29/18 08:45: Pathology Specimen Spec to path EGD by Dr. Masters. Discharge Location: Home Disposition: Home Health Service Home Health Agency: [facility], [place] Home Health Condition: Fair Face to Face Encounter completed per CMS Guidelines: Yes Discharge Activity: Activity as tolerated Discharge Diet: General/regular food Referrals: Brook Masters DO [Staff Physician] - Consultation Done:: Dr. Masters Additional Patient Instructions (free text): -Please make TCM appointment unless fpc discharge. Thank you! Mely @ [phone]. Report any further bleeding. D/c neosynephrine NS due to hypertension. Prescriptions (Any new or edited meds): Levofloxacin [Levaquin] 250 mg PO DAILY #5 tablet Pantoprazole Sodium 20 mg PO DAILY #30 tablet. Pantoprazole Sodium [Protonix] 40 mg PO BID@0700,2100 #30 tablet. Complete Home Medications List: Complete Home Medication List: Albuterol Sulfate [Albuterol Sulfate 2.5 MG/0.5ML] 1 vial IH Q4H PRN 09/28/18 Amlodipine Besylate 10 mg PO DAILY 09/28/18 Anagrelide HCl 0.5 mg PO DAILY 09/28/18 Aspirin 81 mg PO DAILY 09/28/18 Benzonatate 100 mg PO TID PRN 09/28/18 Enalapril Maleate [Vasotec] 20 mg PO DAILY 09/28/18 Fluticasone Propionate [Flovent Hfa] 1 puff IH DAILY 09/28/18 Furosemide [Lasix] 20 mg PO DAILY 09/28/18 Metoclopramide HCl [Reglan] 5 mg PO QID 09/28/18 Metoprolol Succinate [Toprol Xl] 50 mg PO DAILY 09/28/18 Morphine Sulfate [Ms Contin] 30 mg PO BID 09/28/18 Nicotine [Nicoderm] 14 mg TD DAILY 09/28/18 Saccharomyces Boulardii [Probiotic] 250 mg PO BID 09/28/18 Sennosides [Senna Laxative] 8.6 mg PO DAILY 09/28/18 Simvastatin [Zocor] 10 mg PO HS 09/28/18 Ticagrelor [Brilinta] 90 mg PO BID 09/28/18 predniSONE [Prednisone] 1 tab PO TID 09/28/18 Levofloxacin [Levaquin] 250 mg PO DAILY #5 tablet 09/29/18 Pantoprazole Sodium 20 mg PO DAILY #30 tablet. 09/29/18
[2018-09-29] MEDS ORDERED: amLODIPine BESYLATE 10 MG TABLET PO ONE (12:40)
[2018-09-29 14:05] VITALS: BP 172/62
[2018-09-29] MEDS ORDERED: PANTOPRAZOLE SODIUM 40 MG TABLET.EC PO SCH (21:00)
== END 2018-09-29 14:14 | disposition home health service (06) ==
LOC: ER 10:38 → MS 10:38
PROVIDERS: ADMIT Family Medicine; ATTEND Family Medicine
DX: N39.0 Urinary tract infection, site not specified; D72.829 Elevated white blood cell count, unspecified; K92.0 Hematemesis; J44.9 Chronic obstructive pulmonary disease, unspecified; G20 Parkinson's disease; K92.1 Melena; I10 Essential (primary) hypertension; Z79.52 Long term (current) use of systemic steroids; K13.70 Unspecified lesions of oral mucosa; Z87.891 Personal history of nicotine dependence; D47.3 Essential (hemorrhagic) thrombocythemia; I25.10 Atherosclerotic heart disease of native coronary artery without angina pectoris; B96.20 Unspecified Escherichia coli [E. coli] as the cause of diseases classified elsewhere
CPT/HCPCS: 36415; 71010; 71045; 80053; 81001; 82272; 83519; 83605; 83880; 84484; 85014; 85018; 85025; 85610; 85730; 86850; 86870; 86900; 87040; 87077; 87081; 87086; 87186; 88305; 88312; 88313; 93005; 94640; 94664; 96361; 96365; 96366; 96367; 97110; 97161; 99285; G0378; G8978; G8979; G8980